=== PATIENT | female | born 1995 | race Asian ===

== ENCOUNTER 2016-06-01 11:17 | Emergency (ER) | payer BC, OTHER ==
[~2016-06-01] VITALS: Ht 167.6 cm; Wt 58.0 kg
[2016-06-01 11:23] VITALS: Ht 167.6 cm; Wt 58.0 kg
[2016-06-01] MEDS ORDERED: ONDANSETRON INJ 2 MG/ML 2 ML VIAL IV STA (11:42)
[2016-06-01] MEDS ORDERED: SODIUM CHLORIDE 0.9% 1000ML 1,000 ML IV STA ×2 (11:42)
--- NOTE | 2016-06-01 11:49 | EMERGENCY ROOM VISIT NOTE ---
History First contact with patient: 11:26 Chief Complaint: FLU LIKE SX Stated Complaint: VOMITING,BODY ACHES,STOMACH PAIN History of Present Illness The patient is a 20 year old female who presents to the Emergency Room with complaints of vomiting, abdominal pain and body aches. The patient reports that last night, she woke up from sleep due to severe mid abdominal pain. She states that she vomited one time, but this did not relieve her abdominal pain. She has had 1 more episode of vomiting this morning. She reports that she tried to eat some oatmeal, but vomited it immediately. She states that her entire body feels weak and she feels lightheaded. She states that her nausea seems to be resolving, but she has continued pain in her mid abdomen. She rates the discomfort a 6/10. She denies any history of abdominal surgeries. She was seen at [facility] and sent here due to fever and abdominal pain. She has not taken any medications for her symptoms today. The patient also reports that her right thumb is spasming and she is having difficulty extending it. She denies any urinary symptoms, vaginal bleeding/discharge, chest pain, shortness of breath or changes in bowel movements. Her last menstrual period was approximately one week ago. Review of Systems A complete 10-point Review of Systems was discussed with the patient, with pertinent positives and negatives listed in the History of Present Illness. All remaining Review of Systems questions can be considered negative unless otherwise specified. Social History Smoking Status: Never Smoker Occupation Status: [employer] student Current/Historical Medications Scheduled Ondasetron Odt (Zofran Odt), 4 MG SL Q6H Allergies Coded Allergies: No Known Allergies (Unverified , 06/01/16) Physical Exam Vital Signs Date Time Temp Pulse Resp B/P Pulse Ox O2 Delivery O2 Flow Rate FiO2 06/01/16 15:27 37.9 110 18 101/60 98 Room Air 06/01/16 13:24 109 18 110/72 98 Room Air 06/01/16 11:23 36.9 128 16 100/68 96 Room Air Physical Exam VITALS: Vitals are noted on the nurse's note and reviewed by myself. Vital signs stable. GENERAL: This is a 20-year-old female, in no acute distress, nondiaphoretic, well-developed well-nourished. HEENT: Normocephalic. PERRLA. EOMI. Nares patent. Mucous membranes moist. Neck is supple without nuchal rigidity. HEART: Tachycardic, regular rhythm without murmurs gallops or rubs. LUNGS: Clear to auscultation bilaterally without wheezes, rales or rhonchi. ABDOMEN: Positive bowel sounds x 4. The patient has moderate tenderness over the periumbilical region and right mid abdomen. NEURO: Patient was alert and oriented to person place and time. Medical Decision & Procedures ER Provider Diagnostic Interpretation: ABDOMEN AND PELVIS CT WITH IV AND ORAL CONTRAST CT DOSE: 277.92 mGy.cm HISTORY: Generalized abdominal pain, vomiting, fever TECHNIQUE: Multiaxial CT images of the abdomen and pelvis were performed following the use of intravenous and oral contrast. COMPARISON STUDY: None. FINDINGS: The lung bases are clear. The liver, spleen, gallbladder, pancreas, kidneys, and adrenal glands are within normal limits. No bowel wall thickening or obstruction. The pelvic organs are unremarkable. No suspicious lytic or blastic osseous lesions. Normal appendix. Trace pelvic free fluid is likely physiologic. The bladder is unremarkable. IMPRESSION: 1. No bowel wall thickening or obstruction. 2. Normal appendix. 3. Trace pelvic free fluid which is likely physiologic. Laboratory Results 06/01/16 11:55 Red Blood Count 4.88, Mean Corpuscular Volume 86.5, Mean Corpuscular Hemoglobin 29.9, Mean Corpuscular Hemoglobin Concent 34.6, Mean Platelet Volume 11.2, Neutrophils (%) (Auto) 93.5, Lymphocytes (%) (Auto) 3.9, Monocytes (%) (Auto) 2.3, Eosinophils (%) (Auto) 0.0, Basophils (%) (Auto) 0.1, Neutrophils # (Auto) 7.72, Lymphocytes # (Auto) 0.32, Monocytes # (Auto) 0.19, Eosinophils # (Auto) 0.00, Basophils # (Auto) 0.01 06/01/16 11:55 Test 06/01/16 11:55 White Blood Count 8.26 K/uL (4.8-10.8) Red Blood Count 4.88 M/uL (4.2-5.4) Hemoglobin 14.6 g/dL (12.0-16.0) Hematocrit 42.2 % (37-47) Mean Corpuscular Volume 86.5 fL (80-100) Mean Corpuscular Hemoglobin 29.9 pg (25-34) Mean Corpuscular Hemoglobin Concent 34.6 g/dl (32-36) Platelet Count 181 K/uL (130-400) Mean Platelet Volume 11.2 fL (7.4-10.4) Neutrophils (%) (Auto) 93.5 % Lymphocytes (%) (Auto) 3.9 % Monocytes (%) (Auto) 2.3 % Eosinophils (%) (Auto) 0.0 % Basophils (%) (Auto) 0.1 % Neutrophils # (Auto) 7.72 K/uL (1.4-6.5) Lymphocytes # (Auto) 0.32 K/uL (1.2-3.4) Monocytes # (Auto) 0.19 K/uL (0.11-0.59) Eosinophils # (Auto) 0.00 K/uL (0-0.5) Basophils # (Auto) 0.01 K/uL (0-0.2) RDW Standard Deviation 39.1 fL (36.4-46.3) RDW Coefficient of Variation 12.3 % (11.5-14.5) Immature Granulocyte % (Auto) 0.2 % Immature Granulocyte # (Auto) 0.02 K/uL (0.00-0.02) Urine Color YELLOW Urine Appearance CLEAR (CLEAR) Urine pH >= 9.0 (4.5-7.5) Urine Specific [place] 1.022 (1.000-1.030) Urine Protein NEG (NEG) Urine Glucose (UA) NEG (NEG) Urine Ketones 1+ (NEG) Urine Occult Blood NEG (NEG) Urine Nitrite NEG (NEG) Urine Bilirubin NEG (NEG) Urine Urobilinogen NEG (NEG) Urine Leukocyte Esterase TRACE (NEG) Urine WBC (Auto) 1-5 /hpf (0-5) Urine RBC (Auto) 0-4 /hpf (0-4) Urine Hyaline Casts (Auto) 1-5 /lpf (0-5) Urine Epithelial Cells (Auto) >30 /lpf (0-5) Urine Bacteria (Auto) 1+ (NEG) Urine Renal Epithelial Cells /lpf (0-5) Urine Test NEG (NEG) Anion Gap 13.0 mmol/L (3-11) Est Creatinine Clear Calc Drug Dose 113.2 ml/min Estimated GFR () 138.7 Estimated GFR (Non- 119.7 BUN/Creatinine Ratio 20.7 (10-20) Calcium Level 9.1 mg/dl (8.5-10.1) Total Bilirubin 1.9 mg/dl (0.2-1) Aspartate Amino Transf (AST/SGOT) 11 U/L (15-37) Alanine Aminotransferase (ALT/SGPT) 9 U/L (12-78) Alkaline Phosphatase 54 U/L (45-117) Total Protein 8.1 gm/dl (6.4-8.2) Albumin 4.5 gm/dl (3.4-5.0) Globulin 3.6 gm/dl (2.5-4.0) Albumin/Globulin Ratio 1.3 (0.9-2) Lipase 144 U/L (73-393) Medications Administered Medications (Trade) Dose Ordered Sig/Tera Route Start Time Stop Time Status Last Admin Dose Admin Sodium Chloride 1,000 ml @ 999 mls/hr Q1H1M STAT IV 06/01/16 11:42 06/01/16 12:42 DC 06/01/16 11:56 999 MLS/HR Sodium Chloride (Nss 1000ml) 1,000 ml @ 999 mls/hr Q1H1M STAT IV 06/01/16 11:42 06/01/16 12:42 DC 06/01/16 11:56 999 MLS/HR Ondansetron HCl (Zofran Inj) 4 mg NOW STAT IV 06/01/16 11:42 06/01/16 11:44 DC 06/01/16 11:55 4 MG Morphine Sulfate (MoRPHine SULFATE INJ) 4 mg NOW STAT IV 06/01/16 12:21 06/01/16 12:22 DC 06/01/16 12:35 4 MG Medical Decision Differential diagnosis includes appendicitis, cholecystitis, gastroenteritis, colitis, mesenteric adenitis, ovarian cyst, ovarian torsion, among others. The patient was evaluated as above. Labs were drawn and IV access was obtained. Imaging studies were performed and read by radiology as above. The patient was medicated with 2 L normal saline solution, 4 mg Zofran and 4 mg morphine. The patient was reassessed multiple times during their stay in the emergency department and remained in stable condition. The patient is a and 20-year-old female who presents today complaining of abdominal pain, vomiting and body aches. I did recheck her temperature in the room and it was mildly elevated at 37.7C. Labs revealed no leukocytosis, anemia or concerning electrolyte abnormalities. Urinalysis was not suggestive of infection. Urine was negative. Due to the patient's low-grade fever, abdominal pain and vomiting, I did feel was necessary to rule out appendicitis. CT scan of the abdomen and pelvis was performed and revealed no acute findings. The patient's symptoms are likely due to a gastroenteritis. She felt much better after IV hydration and IV therapy. I did recommend a pelvic exam, but the patient deferred. She will follow-up with [facility] this week for a recheck. She was given a prescription for Zofran and conservative measures were discussed. Based on the patient's presentation, lab results, and imaging studies, I feel the patient is stable for outpatient treatment. The patient's case was reviewed with Dr. Cherry, ED attending physician, who agreed with my assessment and treatment plan. Discharge instructions were reviewed with the patient. The patient verbalized understanding of my assessment and treatment plan and was discharged home in good condition. Impression Primary Impression: Abdominal pain with vomiting Departure Information Dispostion Home / Self-Care Condition GOOD Prescriptions Ondasetron Odt (ZOFRAN ODT) 4 Mg Tab 4 MG SL Q6H for Nausea, #15 TAB Prov: Blanquita Hopson .HUGO 06/01/16 Referrals [facility] (PCP) Patient Instructions My [facility] Additional Instructions You have been treated in the Emergency Department for your Abdominal Pain. Laboratory results and imaging studies have ruled out any emergent causes for your abdominal pain which would warrant admission or surgery. You have been prescribed Zofran to be used for any nausea or vomiting. Take as prescribed. For pain control, you can use the following [id number] medicines (if >12 yo): - Regular strength (325mg/tab) Tylenol (acetaminophen) 2 tabs every 4-6 hours as needed. Do not exceed 12 tablets in a 24 hour period. Avoid taking more than 4 grams (4000 mg) of Tylenol per day. This includes any other sources of acetaminophen you may take on a regular basis. - Regular strength (200 mg/tab) Advil (ibuprofen) 1-2 tabs every 4-6 hours as needed. Do not exceed a dose of 3200 mg per day. Drink plenty of water and stay well hydrated. You should follow-up with [facility] services within 2-3 days. Return to the emergency department if your symptoms persist despite treatment plan outlined above or if the following symptoms occur: increased fevers, chills , worsening nausea/vomiting, blood in your stool or urine.
[2016-06-01] MEDS ORDERED: OPTIRAY 320 IV PRN (12:00)
[2016-06-01 12:06] LABS: HEMATOCRIT 42.2 % (37-47); MEAN CELL VOLUME 86.5 fL (80-100); MEAN CORPUSCULAR HEMOGLOBIN 29.9 pg (25-34); MEAN CORPUSCULAR HGB CONC 34.6 g/dl (32-36); MEAN PLATELET VOLUME 11.2 fL (7.4-10.4); PLATELET COUNT 181 K/uL (130-400); RED BLOOD COUNT 4.88 M/uL (4.2-5.4); WHITE BLOOD COUNT 8.26 K/uL (4.8-10.8)
[2016-06-01 12:19] LABS: URINE APPEARANCE CLEAR (CLEAR); URINE BILIRUBIN NEG (NEG); URINE COLOR YELLOW; URINE EPITHELIAL CELL AUTO >30 /lpf (0-5); URINE NITRITE NEG (NEG); URINE PH >= 9.0 (4.5-7.5); URINE SPECIFIC GRAVITY 1.022 (1.000-1.030); UROBILINOGEN NEG (NEG); ZZUR CULT IF INDIC CLEAN CATCH YES
[2016-06-01] MEDS ORDERED: MoRPHine SULFATE 4 MG/ML 1 ML CARP\\VIAL IV STA (12:21)
[2016-06-01 12:23] LABS: MANUAL MICROSCOPIC REQUIRED? NO; REVIEW REQ? YES
[2016-06-01 12:26] LABS: BUN/CREATININE RATIO 20.7 (10-20); CALCIUM 9.1 mg/dl (8.5-10.1); CREATININE 0.72 mg/dl (0.60-1.20); POTASSIUM 3.7 mmol/L (3.5-5.1)
[2016-06-01 12:29] LABS: ALB/GLOB RATIO 1.3 (0.9-2)
[2016-06-01 12:31] LABS: BASO % 0.1 %; BASO ABS # 0.01 K/uL (0-0.2); COMPLETE YES; IG% 0.2 %; LYMPH % 3.9 %; LYMPH ABS # 0.32 K/uL (1.2-3.4); MONO % 2.3 %; NEUT % 93.5 %
--- NOTE | 2016-06-01 14:53 | DIAGNOSTIC IMAGING REPORT ---
ABDOMEN AND PELVIS CT WITH IV AND ORAL CONTRAST CT DOSE: 277.92 mGy.cm HISTORY: Generalized abdominal pain, vomiting, fever TECHNIQUE: Multiaxial CT images of the abdomen and pelvis were performed following the use of intravenous and oral contrast. COMPARISON STUDY: None. FINDINGS: The lung bases are clear. The liver, spleen, gallbladder, pancreas, kidneys, and adrenal glands are within normal limits. No bowel wall thickening or obstruction. The pelvic organs are unremarkable. No suspicious lytic or blastic osseous lesions. Normal appendix. Trace pelvic free fluid is likely physiologic. The bladder is unremarkable. IMPRESSION: 1. No bowel wall thickening or obstruction. 2. Normal appendix. 3. Trace pelvic free fluid which is likely physiologic. Electronically signed by: Jose Alcala M.D. 06/01/2016 2:52 PM Dictated Date/Time: 06/01/2016 2:41 PM
[2016-06-01] MEDS ORDERED: ONDA4TAB10 SL (15:19)
[2016-06-01 15:27] VITALS: BP 101/60; PULSE 110; TEMP 37.9; O2SAT 98
== END 2016-06-01 15:58 | disposition home or self-care (01) ==
LOC: C.EDB 11:19 → C.EDC 15:58
DX: R10.9 Unspecified abdominal pain (principal); R11.2 Nausea with vomiting, unspecified; R50.9 Fever, unspecified